=== PATIENT | female | born 1935 | race Caucasian/White ===

== ENCOUNTER 2018-06-29 18:19 | Inpatient (IN) ==
[2018-06-29] MEDS ORDERED: NOREPINEPHRINE 8 MG in SODIUM CHLORIDE 0.9% 242 ML IV PRN (21:26)
[2018-06-29] MEDS ORDERED: PENICILLIN G POTASSIUM INJ 5,000,000 UNIT in SODIUM CHLORIDE 0.9% 100 ML IV ONE (23:45)
[2018-06-29] MEDS ORDERED: PENICILLIN G POTASSIUM INJ 4,000,000 UNIT in SODIUM CHLORIDE 0.9% 100 ML IV SCH (23:45)
[2018-06-30] MEDS ORDERED: PENICILLIN G POTASSIUM INJ 5,000,000 UNIT in SODIUM CHLORIDE 0.9% 100 ML IV SCH
[2018-06-30] MEDS ORDERED: PENICILLIN G POTASSIUM INJ 5,000,000 UNIT in SODIUM CHLORIDE 0.9% 100 ML IV ONE
[2018-06-30 00:12] LABS: Basophils % 0.1 % (0.0-0.8); Eosinophils # 0.1 10*3/uL (0.0-0.87); Eosinophils % 0.8 % (0.00-10.9); Immature Granulocytes % 1.4 %; Lymphocytes # 0.6 10*3/uL (1.4-4.0); Lymphocytes % 4.3 % (21.3-54.2); Mean Corpuscular HGB Conc 39.4 GM/DL (32-36); Mean Corpuscular Hemoglobin 42 PG (27-34); Mean Corpuscular Volume 105.6 FL (87-102); Mean Platelet Volume 9.8 FL (9.6-12.0); Monocytes # 0.9 10*3/uL (0.11-0.8); Monocytes % 6.3 % (1.7-12.7); Neutrophils # 12.3 10*3/uL (1.4-7.4); Neutrophils % 87.1 % (38.7-73.9); Platelet Count 246 T/CUMM (130-400); Red Blood Count 2.33 MC/CUMM (3.8-5.5); White Blood Count 14.1 T/CUMM (4-12)
[2018-06-30 00:30] LABS: Alanine Aminotransferase 29 U/L (13-56); Alkaline Phosphatase 71 U/L (45-117); Aspartate Amino Transferase 20 U/L (0-37); Bilirubin,Total < 0.39 MG/DL (0.2-1.0); Blood Urea Nitrogen 20 MG/DL (7-18); Calcium 8.2 MG/DL (8.5-10.1); Glucose 129 MG/DL (74-106); Osmolality,Calculated 279.7 MOS/KG (273-304); Potassium 4.2 MMOL/L (3.5-5.1); Sodium 138 MMOL/L (136-145)
[2018-06-30 00:44] LABS: Hematocrit 28.7 VOL% (35.7-47.0); Hemoglobin 9.8 GM/DL (12.0-16.0)
[2018-06-30] MEDS: PROBENECID 500 MG TABLET PO SCH ×3 (00:58→22:26)
[2018-06-30 01:15] LABS: Lymphocytes 2 % (20-55); Segmented Neutrophils 89 % (50-85)
[2018-06-30 01:17] LABS: Platelet Estimate Normal; Total Cells Counted 100
[2018-06-30] MEDS: PENICILLIN G POTASSIUM INJ 4,000,000 UNIT in SODIUM CHLORIDE 0.9% 100 ML IV SCH ×5 (03:58→21:42)
[2018-06-30] MEDS: PROPOFOL 1,000 MG/100 ML BOTTLE IV SCH (05:45)
[2018-06-30 06:25] LABS: ABG Base Excess -1.2 MMOL/L (-2.5-2.5); ABG HCO3 23.4 MMOL/L (20-26); ABG Oxygen Saturation 99.8 % (95-100); ABG PCO2 29.7 MM HG (35-48); ABG PH 7.471 (7.35-7.45); ABG TCO2 19.8 MMOL/L (23-27)
[2018-06-30 08:52] LABS: Apearance,Urine CLOUDY (Clear); Bacteria,Urine Few /HPF (Few); Bilirubin,Urine Negative (Negative); Blood, Urine Large mg/dL (Negative); Glucose,Urine (UA) Negative (Negative); Ketones,Urine Negative (Negative); Nitrite,Urine Negative (Negative); Protein,Urine Negative; RBC,Urine 317 /HPF (0-4); Urine Color Yellow (Yellow); Urine Specific Gravity 1.015 (1.001-1.035); Urine Urobilinogen < 2.0 EU/DL (0.2-1.0)
[2018-06-30] MEDS ORDERED: MORPHINE 4 MG/1 ML VIAL ONE (12:42)
[2018-06-30] MEDS ORDERED: LORazepam 2 MG/1 ML VIAL ONE (12:43)
[2018-06-30] MEDS ORDERED: LORazepam 2 MG/1 ML VIAL IV ONE (13:04)
[2018-06-30] MEDS ORDERED: MORPHINE 4 MG/1 ML VIAL IV ONE (13:04)
[2018-06-30] MEDS ORDERED: DEXTROSE 50% 25 GM/50 ML VIAL IV PRN (14:21)
[2018-06-30] MEDS ORDERED: GLUCAGON 1 MG VIAL IM PRN (14:21)
[2018-07-01] MEDS: PENICILLIN G POTASSIUM INJ 4,000,000 UNIT in SODIUM CHLORIDE 0.9% 100 ML IV SCH ×6 (00:39→20:19)
[2018-07-01] MEDS: PROPOFOL 1,000 MG/100 ML BOTTLE IV SCH (03:41)
[2018-07-01 05:25] LABS: Basophils % 0.3 % (0.0-0.8); Eosinophils # 0.2 10*3/uL (0.0-0.87); Eosinophils % 1.5 % (0.00-10.9); Hematocrit 25.1 VOL% (35.7-47.0); Hemoglobin 8.3 GM/DL (12.0-16.0); Immature Granulocytes % 0.6 %; Immature Granulocytes Absolute 0.07 #; Lymphocytes # 0.6 10*3/uL (1.4-4.0); Lymphocytes % 4.6 % (21.3-54.2); Mean Corpuscular HGB Conc 33.1 GM/DL (32-36); Mean Corpuscular Hemoglobin 31 PG (27-34); Mean Corpuscular Volume 94.4 FL (87-102); Mean Platelet Volume 9.6 FL (9.6-12.0); Monocytes # 0.7 10*3/uL (0.11-0.8); Monocytes % 5.5 % (1.7-12.7); Neutrophils # 10.4 10*3/uL (1.4-7.4); Neutrophils % 87.5 % (38.7-73.9); Platelet Count 186 T/CUMM (130-400); Red Blood Count 2.66 MC/CUMM (3.8-5.5); Red Cell Distribution Width 14.3 % (9.3-17.3); White Blood Count 11.9 T/CUMM (4-12)
[2018-07-01 05:33] LABS: ABG Base Excess -1.6 MMOL/L (-2.5-2.5); ABG HCO3 23.1 MMOL/L (20-26); ABG Oxygen Saturation 99.4 % (95-100); ABG PCO2 31.3 MM HG (35-48)
[2018-07-01 05:47] LABS: Calcium 7.9 MG/DL (8.5-10.1); Potassium 4.4 MMOL/L (3.5-5.1)
[2018-07-01 05:48] LABS: Hypochromasia 1+
[2018-07-01 05:49] LABS: Microcytosis Slight; Platelet Estimate Adequate
[2018-07-01 06:24] LABS: Prealbumin 9.6 MG/DL (20-40)
[2018-07-01] MEDS: MORPHINE 4 MG/1 ML VIAL IV PRN ×2 (07:30→23:01)
[2018-07-01] MEDS ORDERED: POTASSIUM CHLORIDE 20 MEQ TABLET PO ONE (08:42)
[2018-07-01 09:49] LABS: ABG Base Excess -1.6 MMOL/L (-2.5-2.5); ABG HCO3 23.1 MMOL/L (20-26); ABG Oxygen Saturation 99.4 % (95-100); ABG PCO2 31.3 MM HG (35-48); ABG PH 7.451 (7.35-7.45); ABG TCO2 19.9 MMOL/L (23-27)
[2018-07-01] MEDS: PROBENECID 500 MG TABLET PO SCH ×2 (09:56→21:48)
[2018-07-01] MEDS: INSULIN REGULAR 100 UNIT/ML SUBCUT SCH ×3 (12:00→23:25)
[2018-07-01 12:31] LABS: ABG HCO3 22.8 MMOL/L (20-26); ABG Oxygen Saturation 98.7 % (95-100); ABG PCO2 33.6 MM HG (35-48); ABG PH 7.422 (7.35-7.45)
[2018-07-01] MEDS: ALBUTEROL/IPRATROPIUM 3 ML NEB RESP TX SCH ×2 (14:29→19:34)
[2018-07-01] MEDS ORDERED: GABAPENTIN 100 MG CAPSULE PO SCH (21:00)
[2018-07-02] MEDS: ALBUTEROL/IPRATROPIUM 3 ML NEB RESP TX SCH ×4 (00:13→19:14)
[2018-07-02] MEDS: PENICILLIN G POTASSIUM INJ 4,000,000 UNIT in SODIUM CHLORIDE 0.9% 100 ML IV SCH ×6 (02:09→21:45)
[2018-07-02 06:07] LABS: Calcium 8.2 MG/DL (8.5-10.1); Osmolality,Calculated 284.1 MOS/KG (273-304)
[2018-07-02] MEDS: INSULIN REGULAR 100 UNIT/ML SUBCUT SCH ×3 (06:29→18:10)
[2018-07-02 06:30] LABS: Basophils # 0.1 10*3/uL (0.0-0.2); Basophils % 0.5 % (0.0-0.8); Eosinophils # 0.2 10*3/uL (0.0-0.87); Eosinophils % 1.3 % (0.00-10.9); Hematocrit 25.1 VOL% (35.7-47.0); Immature Granulocytes % 0.7 %; Immature Granulocytes Absolute 0.09 #; Lymphocytes # 0.6 10*3/uL (1.4-4.0); Lymphocytes % 5.1 % (21.3-54.2); Mean Corpuscular HGB Conc 32.3 GM/DL (32-36); Mean Corpuscular Hemoglobin 31 PG (27-34); Mean Corpuscular Volume 96.5 FL (87-102); Mean Platelet Volume 9.9 FL (9.6-12.0); Monocytes # 0.7 10*3/uL (0.11-0.8); Monocytes % 5.7 % (1.7-12.7); Neutrophils # 10.9 10*3/uL (1.4-7.4); Neutrophils % 86.7 % (38.7-73.9); Platelet Count 197 T/CUMM (130-400); Red Cell Distribution Width 14.6 % (9.3-17.3); White Blood Count 12.6 T/CUMM (4-12)
[2018-07-02 06:32] LABS: Hemoglobin 8.1 GM/DL (12.0-16.0)
[2018-07-02 06:37] LABS: Hypochromasia 1+; Microcytosis Slight; Platelet Estimate Adequate
[2018-07-02] MEDS: PROBENECID 500 MG TABLET PO SCH ×2 (09:32→22:01)
[2018-07-02] MEDS: ENOXAPARIN 40 MG/0.4 ML SYRINGE SUBCUT SCH (10:32)
[2018-07-02] MEDS: FERRIC GLUCONATE COMPLEX 125 MG in SODIUM CHLORIDE 0.9% 100 ML IV SCH (12:09)
[2018-07-02] MEDS ORDERED: DOPamine 800 MG/250 ML PREMIX IV ONE (13:23)
[2018-07-02] MEDS ORDERED: SODIUM CHLORIDE 0.9% 1,000 ML IV ONE ×2 (13:42→15:07)
[2018-07-02] MEDS ORDERED: DOPamine 800 MG/250 ML PREMIX IV PRN (13:42)
[2018-07-02] MEDS ORDERED: HEPARIN/NACL 0.9% 2 UNITS/ML 500 ML IV ONE (13:58)
[2018-07-02] MEDS ORDERED: LIDOCAINE 1% 20 ML VIAL ONE (13:58)
[2018-07-02] MEDS ORDERED: AMIODARONE 150 MG/3 ML VIAL ONE (14:43)
[2018-07-02] MEDS ORDERED: AMIODARONE INJ 150 MG in DEXTROSE 5% 100 ML IV ONE (14:45)
[2018-07-02] MEDS ORDERED: AMIODARONE 450 MG/9 ML VIAL IV ONE (14:52)
[2018-07-02] MEDS ORDERED: AMIODARONE INJ 450 MG in DEXTROSE 5% 241 ML IV SCH ×2 (15:00→21:00)
[2018-07-02 15:35] LABS: Calcium 7.5 MG/DL (8.5-10.1); Osmolality,Calculated 288.3 MOS/KG (273-304); Potassium 4.6 MMOL/L (3.5-5.1)
[2018-07-02] MEDS ORDERED: NOREPINEPHRINE 8 MG in SODIUM CHLORIDE 0.9% 242 ML IV PRN (15:46)
[2018-07-02] MEDS ORDERED: NOREPINEPHRINE 4 MG/4 ML VIAL IV ONE (15:48)
[2018-07-02] MEDS: GABAPENTIN 100 MG CAPSULE PO SCH (22:01)
[2018-07-03] MEDS: ALBUTEROL/IPRATROPIUM 3 ML NEB RESP TX SCH ×4 (00:37→19:49)
[2018-07-03] MEDS: SODIUM CHLORIDE 0.9% 1,000 ML IV SCH ×3 (00:49→12:36)
[2018-07-03] MEDS: INSULIN REGULAR 100 UNIT/ML SUBCUT SCH ×4 (00:50→18:22)
[2018-07-03] MEDS: PENICILLIN G POTASSIUM INJ 4,000,000 UNIT in SODIUM CHLORIDE 0.9% 100 ML IV SCH ×6 (01:42→19:51)
[2018-07-03 06:39] LABS: Basophils % 0.4 % (0.0-0.8); Eosinophils # 0.1 10*3/uL (0.0-0.87); Eosinophils % 1.1 % (0.00-10.9); Hematocrit 24.4 VOL% (35.7-47.0); Immature Granulocytes % 0.7 %; Immature Granulocytes Absolute 0.07 #; Lymphocytes # 0.5 10*3/uL (1.4-4.0); Lymphocytes % 5.2 % (21.3-54.2); Mean Corpuscular Hemoglobin 31 PG (27-34); Mean Corpuscular Volume 96.4 FL (87-102); Mean Platelet Volume 10.1 FL (9.6-12.0); Monocytes # 0.6 10*3/uL (0.11-0.8); Monocytes % 6.2 % (1.7-12.7); Neutrophils # 8.9 10*3/uL (1.4-7.4); Neutrophils % 86.4 % (38.7-73.9); Platelet Count 170 T/CUMM (130-400); Red Blood Count 2.53 MC/CUMM (3.8-5.5); Red Cell Distribution Width 14.8 % (9.3-17.3); White Blood Count 10.3 T/CUMM (4-12)
[2018-07-03 06:40] LABS: Hemoglobin 7.8 GM/DL (12.0-16.0)
[2018-07-03 06:43] LABS: Calcium 7.8 MG/DL (8.5-10.1); Osmolality,Calculated 283.1 MOS/KG (273-304); Potassium 4.6 MMOL/L (3.5-5.1)
[2018-07-03 06:48] LABS: Hypochromasia 1+; Ovalocytes Slight; Platelet Estimate Adequate
[2018-07-03 06:49] LABS: Microcytosis Slight
[2018-07-03] MEDS: PROBENECID 500 MG TABLET PO SCH ×2 (08:26→21:28)
[2018-07-03] MEDS ORDERED: SODIUM CHLORIDE 0.9% 1,000 ML IV PRN (08:42)
[2018-07-03] MEDS: FERRIC GLUCONATE COMPLEX 125 MG in SODIUM CHLORIDE 0.9% 100 ML IV SCH (08:52)
[2018-07-03] MEDS: FAMOTIDINE 20 MG TABLET PO SCH ×2 (08:58→21:28)
[2018-07-03] MEDS: ENOXAPARIN 40 MG/0.4 ML SYRINGE SUBCUT SCH (10:14)
[2018-07-03] MEDS ORDERED: LIDOCAINE 1% 20 ML VIAL ONE (11:07)
[2018-07-03] MEDS ORDERED: HEPARIN/NACL 0.9% 2 UNITS/ML 500 ML IV ONE (11:07)
[2018-07-03] MEDS ORDERED: KETAMINE 500 MG/10 ML VIAL ONE (12:08)
[2018-07-03] MEDS ORDERED: ETOMIDATE 40 MG/20 ML VIAL IV ONE (12:09)
[2018-07-03] MEDS ORDERED: ONDANSETRON 4 MG/2 ML VIAL ONE (12:09)
[2018-07-03] MEDS ORDERED: FUROSEMIDE 40 MG/4 ML VIAL IV ONE (20:33)
[2018-07-03] MEDS ORDERED: LEVALBUTEROL 1.25 MG/3 ML NEB RESP TX ONE (20:33)
[2018-07-03] MEDS: GABAPENTIN 100 MG CAPSULE PO SCH (21:28)
[2018-07-04] MEDS: PENICILLIN G POTASSIUM INJ 4,000,000 UNIT in SODIUM CHLORIDE 0.9% 100 ML IV SCH ×6 (00:19→20:30)
[2018-07-04] MEDS: INSULIN REGULAR 100 UNIT/ML SUBCUT SCH ×4 (00:19→19:16)
[2018-07-04] MEDS: ALBUTEROL/IPRATROPIUM 3 ML NEB RESP TX SCH ×4 (00:43→19:03)
[2018-07-04 04:36] LABS: Basophils # 0.1 10*3/uL (0.0-0.2); Basophils % 0.4 % (0.0-0.8); Eosinophils # 0.2 10*3/uL (0.0-0.87); Eosinophils % 1.6 % (0.00-10.9); Immature Granulocytes % 0.8 %; Lymphocytes # 0.6 10*3/uL (1.4-4.0); Lymphocytes % 5.1 % (21.3-54.2); Mean Corpuscular HGB Conc 32.4 GM/DL (32-36); Mean Corpuscular Hemoglobin 31 PG (27-34); Mean Corpuscular Volume 95.1 FL (87-102); Mean Platelet Volume 9.7 FL (9.6-12.0); Monocytes # 0.7 10*3/uL (0.11-0.8); Monocytes % 5.8 % (1.7-12.7); Neutrophils # 10.2 10*3/uL (1.4-7.4); Neutrophils % 86.3 % (38.7-73.9); Platelet Count 155 T/CUMM (130-400); White Blood Count 11.9 T/CUMM (4-12)
[2018-07-04 05:03] LABS: Red Blood Count 3.05 MC/CUMM (3.8-5.5)
[2018-07-04 05:04] LABS: Hemoglobin 9.4 GM/DL (12.0-16.0)
[2018-07-04 05:05] LABS: Calcium 7.7 MG/DL (8.5-10.1); Potassium 4.2 MMOL/L (3.5-5.1)
[2018-07-04 05:07] LABS: Calcium 7.9 MG/DL (8.5-10.1); Osmolality,Calculated 275.8 MOS/KG (273-304); Potassium 4.2 MMOL/L (3.5-5.1)
[2018-07-04 05:13] LABS: Prealbumin 9.8 MG/DL (20-40)
[2018-07-04 05:21] LABS: Eosinophils 2 % (0-10); Hypochromasia 1+; Lymphocytes 3 % (20-55); Microcytosis Slight; Platelet Estimate Adequate; Segmented Neutrophils 91 % (50-85); Total Cells Counted 100
[2018-07-04 05:23] LABS: Folate 6.4 NG/ML (5.4-24.0); Vitamin B12 718 PG/ML (211-911)
[2018-07-04 06:25] LABS: Sedimentation Rate-Westergren 72 MM/HR (0-30)
[2018-07-04] MEDS: FAMOTIDINE 20 MG TABLET PO SCH ×2 (08:02→21:28)
[2018-07-04] MEDS: PROBENECID 500 MG TABLET PO SCH ×2 (08:03→21:28)
[2018-07-04] MEDS ORDERED: FUROSEMIDE 40 MG/4 ML VIAL IV ONE (09:07)
[2018-07-04 09:23] LABS: Hemoglobin A1 (Alkaline) 98.3 % (96.5-98.5); Hemoglobin A2 (Alkaline) 1.7 % (1.5-3.5)
[2018-07-04 09:53] LABS: Amorphous Crystals,Urine Occasional /HPF (Few); Apearance,Urine CLOUDY (Clear); Bilirubin,Urine Negative (Negative); Blood, Urine Large mg/dL (Negative); Glucose,Urine (UA) Negative (Negative); Ketones,Urine Negative (Negative); Nitrite,Urine Negative (Negative); Protein,Urine 30 MG/DL; RBC,Urine 2858 /HPF (0-4); Urine Color Red (Yellow); Urine Specific Gravity 1.011 (1.001-1.035); Urine Urobilinogen < 2.0 EU/DL (0.2-1.0); WBC,Urine 19 /HPF (0-6)
[2018-07-04] MEDS: ENOXAPARIN 40 MG/0.4 ML SYRINGE SUBCUT SCH (09:58)
[2018-07-04] MEDS: BENZONATATE 100 MG CAPSULE PO PRN (09:58)
[2018-07-04] MEDS: FERRIC GLUCONATE COMPLEX 125 MG in SODIUM CHLORIDE 0.9% 100 ML IV SCH (11:38)
[2018-07-04] MEDS: GABAPENTIN 100 MG CAPSULE PO SCH (21:28)
[2018-07-05] MEDS: PENICILLIN G POTASSIUM INJ 4,000,000 UNIT in SODIUM CHLORIDE 0.9% 100 ML IV SCH ×7 (00:20→23:48)
[2018-07-05] MEDS: ALBUTEROL/IPRATROPIUM 3 ML NEB RESP TX SCH ×4 (00:34→19:13)
[2018-07-05] MEDS: INSULIN REGULAR 100 UNIT/ML SUBCUT SCH ×4 (00:34→17:29)
[2018-07-05 05:31] LABS: Basophils # 0.1 10*3/uL (0.0-0.2); Basophils % 0.6 % (0.0-0.8); Eosinophils # 0.3 10*3/uL (0.0-0.87); Eosinophils % 2.4 % (0.00-10.9); Hematocrit 28.5 VOL% (35.7-47.0); Hemoglobin 9.3 GM/DL (12.0-16.0); Immature Granulocytes % 0.7 %; Immature Granulocytes Absolute 0.08 #; Lymphocytes # 0.6 10*3/uL (1.4-4.0); Lymphocytes % 5.4 % (21.3-54.2); Mean Corpuscular HGB Conc 32.6 GM/DL (32-36); Mean Corpuscular Hemoglobin 31 PG (27-34); Mean Platelet Volume 9.3 FL (9.6-12.0); Monocytes # 0.6 10*3/uL (0.11-0.8); Monocytes % 5.8 % (1.7-12.7); Neutrophils # 9.2 10*3/uL (1.4-7.4); Neutrophils % 85.1 % (38.7-73.9); Platelet Count 185 T/CUMM (130-400); Red Cell Distribution Width 14.9 % (9.3-17.3); White Blood Count 10.9 T/CUMM (4-12)
[2018-07-05 05:47] LABS: Osmolality,Calculated 272.8 MOS/KG (273-304)
[2018-07-05] MEDS: PROBENECID 500 MG TABLET PO SCH ×2 (08:14→21:34)
[2018-07-05] MEDS: FAMOTIDINE 20 MG TABLET PO SCH ×2 (08:15→21:34)
[2018-07-05] MEDS: ENOXAPARIN 40 MG/0.4 ML SYRINGE SUBCUT SCH (09:52)
[2018-07-05] MEDS ORDERED: THROMBIN TOPICAL (RECOMBINANT) 5,000 UNIT VIAL TOP ONE (11:27)
[2018-07-05] MEDS ORDERED: FLUCONAZOLE 100 MG TABLET PO SCH (14:00)
[2018-07-05] MEDS: FUROSEMIDE 40 MG/4 ML VIAL IV SCH (16:34)
[2018-07-05] MEDS: GABAPENTIN 100 MG CAPSULE PO SCH (21:34)
[2018-07-05] MEDS: BENZONATATE 100 MG CAPSULE PO PRN (21:49)
[2018-07-06] MEDS: INSULIN REGULAR 100 UNIT/ML SUBCUT SCH ×4 (00:03→20:28)
[2018-07-06] MEDS: ALBUTEROL/IPRATROPIUM 3 ML NEB RESP TX SCH ×4 (00:34→19:33)
[2018-07-06] MEDS: PENICILLIN G POTASSIUM INJ 4,000,000 UNIT in SODIUM CHLORIDE 0.9% 100 ML IV SCH ×5 (04:21→20:56)
[2018-07-06] MEDS: PROBENECID 500 MG TABLET PO SCH ×2 (09:15→20:57)
[2018-07-06] MEDS: FUROSEMIDE 40 MG/4 ML VIAL IV SCH ×2 (09:16→15:41)
[2018-07-06] MEDS: ENOXAPARIN 40 MG/0.4 ML SYRINGE SUBCUT SCH (09:32)
[2018-07-06] MEDS: FAMOTIDINE 20 MG TABLET PO SCH ×2 (09:32→20:56)
[2018-07-06] MEDS: GABAPENTIN 100 MG CAPSULE PO SCH (20:57)
[2018-07-07] MEDS: INSULIN REGULAR 100 UNIT/ML SUBCUT SCH ×3 (00:04→18:50)
[2018-07-07] MEDS: PENICILLIN G POTASSIUM INJ 4,000,000 UNIT in SODIUM CHLORIDE 0.9% 100 ML IV SCH ×7 (00:20→20:49)
[2018-07-07] MEDS: ALBUTEROL/IPRATROPIUM 3 ML NEB RESP TX SCH ×4 (00:49→19:37)
[2018-07-07] MEDS ORDERED: FLUCONAZOLE 150 MG TABLET PO ONE (08:57)
[2018-07-07] MEDS: FUROSEMIDE 40 MG/4 ML VIAL IV SCH ×2 (09:26→15:50)
[2018-07-07] MEDS: PROBENECID 500 MG TABLET PO SCH ×2 (09:27→20:48)
[2018-07-07] MEDS: FAMOTIDINE 20 MG TABLET PO SCH ×2 (09:27→20:48)
[2018-07-07] MEDS: ENOXAPARIN 40 MG/0.4 ML SYRINGE SUBCUT SCH (09:50)
[2018-07-07] MEDS: GABAPENTIN 100 MG CAPSULE PO SCH (20:48)
[2018-07-08] MEDS: PENICILLIN G POTASSIUM INJ 4,000,000 UNIT in SODIUM CHLORIDE 0.9% 100 ML IV SCH ×4 (00:19→12:00)
[2018-07-08] MEDS: INSULIN REGULAR 100 UNIT/ML SUBCUT SCH ×3 (00:19→13:38)
[2018-07-08] MEDS: BENZONATATE 100 MG CAPSULE PO PRN ×2 (00:21→08:16)
[2018-07-08] MEDS: ALBUTEROL/IPRATROPIUM 3 ML NEB RESP TX SCH ×2 (01:10→07:20)
[2018-07-08 03:27] LABS: Basophils % 0.4 % (0.0-0.8); Eosinophils # 0.3 10*3/uL (0.0-0.87); Eosinophils % 3.7 % (0.00-10.9); Hematocrit 30.5 VOL% (35.7-47.0); Hemoglobin 10.1 GM/DL (12.0-16.0); Immature Granulocytes % 0.7 %; Immature Granulocytes Absolute 0.06 #; Lymphocytes # 0.6 10*3/uL (1.4-4.0); Lymphocytes % 7.4 % (21.3-54.2); Mean Corpuscular HGB Conc 33.1 GM/DL (32-36); Mean Corpuscular Hemoglobin 32 PG (27-34); Mean Corpuscular Volume 96.5 FL (87-102); Mean Platelet Volume 9.4 FL (9.6-12.0); Monocytes # 0.6 10*3/uL (0.11-0.8); Monocytes % 7.5 % (1.7-12.7); Neutrophils # 6.8 10*3/uL (1.4-7.4); Neutrophils % 80.3 % (38.7-73.9); Platelet Count 220 T/CUMM (130-400); Red Blood Count 3.16 MC/CUMM (3.8-5.5); Red Cell Distribution Width 15.5 % (9.3-17.3); White Blood Count 8.4 T/CUMM (4-12)
[2018-07-08 03:43] LABS: Calcium 7.8 MG/DL (8.5-10.1); Osmolality,Calculated 272.8 MOS/KG (273-304)
[2018-07-08 05:06] LABS: Apearance,Urine CLEAR (Clear); Bilirubin,Urine Negative (Negative); Blood, Urine Large mg/dL (Negative); Glucose,Urine (UA) Negative (Negative); Ketones,Urine Negative (Negative); Nitrite,Urine Negative (Negative); Protein,Urine 30 MG/DL; RBC,Urine 952 /HPF (0-4); Urine Color Red (Yellow); Urine Specific Gravity 1.005 (1.001-1.035); Urine Urobilinogen < 2.0 EU/DL (0.2-1.0); WBC,Urine 82 /HPF (0-6)
[2018-07-08] MEDS: FUROSEMIDE 40 MG/4 ML VIAL IV SCH (08:09)
[2018-07-08] MEDS: FAMOTIDINE 20 MG TABLET PO SCH ×2 (08:10→08:11)
[2018-07-08] MEDS: ENOXAPARIN 40 MG/0.4 ML SYRINGE SUBCUT SCH ×2 (08:10→10:46)
[2018-07-08 08:12] VITALS: BP 135/92
[2018-07-08] MEDS: PROBENECID 500 MG TABLET PO SCH (08:12)
== END 2018-07-08 13:15 | DRG 288 ==
LOC: SUATTDRO 20:16 → N.ICU 20:16 → N.TELEN 07-05 08:49
PROVIDERS: ADMIT Internal Medicine; ATTEND Internal Medicine Infectious Disease